=== PATIENT | female | born 1955 | race Caucasian/White ===

== ENCOUNTER 2023-08-11 08:57 | Outpatient (AMB) | payer BC, SELFPAY ==
[2023-08-11 09:14] VITALS: BMI 33.5
--- NOTE | 2023-08-11 09:14 | MHC.OFFVIS ---
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 States pain is by her bicep and radiated to her arm. Hx of lipoma removal 07/2021, states pain started a few months after. Reports it has gradually worsen. In the last 4-6 months she has constant pain, tightness and possible muscle loss. Also states she has pain in her left thumb after her grandson accidentally bent her thumb while playing. Pa in with gripping and pinching motion. Allergies amoxicillin [From Augmentin] Allergy (Severe, Verified 08/11/23 09:21) vomitt clavulanic acid [From Augmentin] Allergy (Severe, Verified 08/11/23 09:21) vomitt methysergide [From Sansert] Allergy (Intermediate, Verified 08/11/23 09:20) hyper tagaderm Allergy (Severe, Uncoded 08/11/23 09:21) hives Medication List - Last Reviewed 08/11/23 by ERNA Negrete hydrochlorothiazide 12.5 mg PO DAILY olmesartan 5 mg PO DAILY propranolol ER 60 mg PO BEDTIME HPI HPI Comments History of Present Illness Details Had a lipoma excision on left triceps [address] Chambers, surgery. Patient recalls that it was about 11 cm. She was told during/after procedure that more muscle was taken out than expected, and had to pull out with some difficulty. She did fine after the surgery but started to have soreness 2 months after. 4-6 weeks ago, patient noted atrophy on left medial forearm. She also complains of pain on left thumb. Denies any numbness. 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 Shows me a letter from surgery that pathology was benign, no signs of malignancy. Denies any associated neck pain. History of essential tremors, affects both sides. Review of Systems Const All systems reviewed & are unremarkable except as noted in HPI and below Physical Exam Vital Signs: BMI result Body Mass Index 33.5 Constitutional: Patient appears to be in no acute distress, well nourished and well developed. Patient was appropriately conversant and oriented. Good historian. MSK: Inspection reveals appropriate head and neck positioning. No pain with palpation over the neck musculature. Cervical ROM was full. No scapular winging. Spurling's sign negative. Bilateral shoulder, elbow and wrist ROM WNL. No ligamentous laxity or crepitance. No increased effusion. No specific abnormalities or instability found on inspection and palpation of the spine and extremities. Strength is 5/5 in all muscle groups tested. No increased tone noted. Strength on bilateral upper extremities were symmetric and equal. There is no wrist drop. There is thinning on left medial forearm flexor tendons/muscle. Enlargement of left CMC joint noted. Mild José test left side. Neurological: Neurologic examination of the upper and lower extremities was nonfocal with intact sensation, muscle stretch reflexes and without focal motor deficits . Tremors affecting both hands, equally. Pena?s negative bilaterally. Babinski was down going bilaterally. Clonus was negative. Gait is non-antalgic without loss of balance. Results Reviewed Results Reviewed: I reviewed records from the following: [facility] Assessment & Plan Assessment & Plan (1) Muscle atrophy: Code(s): M62.50 - Muscle wasting and atrophy, not elsewhere classified, unspecified site Qualifiers: Muscle atrophy area: forearm Laterality: left Qualified Code(s): M62.532 - Muscle wasting and atrophy, not elsewhere classified, left forearm (2) Weakness of left arm: Code(s): R29.898 - Other symptoms and signs involving the musculoskeletal system Plan: I suspect that muscle thinning/atrophy is from the amount of muscle taken out during excision 2 years ago. I do not see any wrist drop that would suggest radial neuropathy or plexopathy, but that would still be in our differential diagnosis. We will schedule for EMG. She can start physical therapy to work on strength and control myofascial release as well. Referral given (3) Arthritis of carpometacarpal (CMC) joint of left thumb: Code(s): M18.12 - Unilateral primary osteoarthritis of first carpometacarpal joint, left hand (4) De Quervain's tenosynovitis, left: Code(s): M65.4 - Radial styloid tenosynovitis [de Quervain] Plan: I think the pain on the base of left thumb is a separate issue, possibly from CMC arthritis or de Quervain tenosynovitis. Will do x-rays today. Can work on that in physical therapy as well. Plan Assessment and plan discussed with patient, and patient was agreeable. All questions were answered thoroughly. Crystal Gibbs MD, JULEE Board Certified, [place] [employer] and [employer] (ABPMR) Board Certified, [place] [employer] Electro[employer] (ABEM) Orders: Orders NE electromyogram (EMG) Today M18.12 - Unilateral primary osteoarthritis of first carpometacarpal joint, left hand, M62.50 - Muscle wasting and atrophy, not elsewhere classified, unspecified site, M65.4 - Radial styloid tenosynovitis [de Quervain], R29.898 - Other symptoms and signs involving the musculoskeletal system NE nerve conduction velocity Today M18.12 - Unilateral primary osteoarthritis of first carpometacarpal joint, left hand, M62.50 - Muscle wasting and atrophy, not elsewhere classified, unspecified site, M65.4 - Radial styloid tenosynovitis [de Quervain], R29.898 - Other symptoms and signs involving the musculoskeletal system XR hand LT min 3V Today M18.12 - Unilateral primary osteoarthritis of first carpometacarpal joint, left hand, M62.50 - Muscle wasting and atrophy, not elsewhere classified, unspecified site, M65.4 - Radial styloid tenosynovitis [de Quervain], R29.898 - Other symptoms and signs involving the musculoskeletal system PT Evaluation and Treatment Today M18.12 - Unilateral primary osteoarthritis of first carpometacarpal joint, left hand, M62.50 - Muscle wasting and atrophy, not elsewhere classified, unspecified site, M65.4 - Radial styloid tenosynovitis [de Quervain], R29.898 - Other symptoms and signs involving the musculoskeletal system Coding Level of Care Code New Pt Level 4 (30485) Diagnoses Atrophy of muscle of left forearm M62.532 Muscle atrophy area: forearm Laterality: left Weakness of left arm R29.898 Arthritis of carpometacarpal (CMC) joint of left thumb M18.12 De Quervain's tenosynovitis, left M65.4
== END 2023-08-11 09:51 | disposition home or self-care (01) ==
PROVIDERS: Visit Provider Physical Medicine & Rehabilitation
DX: M62.532 Muscle wasting and atrophy, not elsewhere classified, left forearm (principal); R29.898 Other symptoms and signs involving the musculoskeletal system; M18.12 Unilateral primary osteoarthritis of first carpometacarpal joint, left hand; M65.4 Radial styloid tenosynovitis [de Quervain]
CPT/HCPCS: 99204

== ENCOUNTER 2023-08-11 08:57 | Outpatient (REF) | payer BC, SELFPAY ==
--- NOTE | ~2023-08-11 | XR_ITS ---
EXAMINATION: XR HAND, LEFT CLINICAL INFORMATION: Muscle wasting and atrophy. Attention base of left thumb, evaluate CMC joint. COMPARISON: None available. TECHNIQUE: Four views of the left hand. FINDINGS: The bones are diffusely demineralized. Severe degenerative changes in the 1st carpometacarpal joint with loss of the joint space, subchondral sclerosis and hypertrophic change with remodeling as well as periarticular/subchondral cysts. Advanced degenerative changes in scattered interphalangeal joints, with hypertrophic change most notable in the 5th DIP joint. Moderate degenerative changes 1st metatarsophalangeal joint. XR/XR hand LT min 3V IMPRESSION: Severe degenerative changes 1st carpometacarpal joint with radial subluxation of the 1st metacarpal. Moderate degenerative changes in scattered IP joints. Bones are diffusely demineralized. Recommend followup imaging in 10-14 days if fracture is suspected.
== END 2023-08-11 08:58 | disposition home or self-care (01) ==
LOC: HO.HOSX 08:57
PROVIDERS: Visit Provider Physical Medicine & Rehabilitation
DX: M18.12 Unilateral primary osteoarthritis of first carpometacarpal joint, left hand (principal); M65.4 Radial styloid tenosynovitis [de Quervain]; M62.532 Muscle wasting and atrophy, not elsewhere classified, left forearm; R29.898 Other symptoms and signs involving the musculoskeletal system
CPT/HCPCS: 73130

== ENCOUNTER 2023-09-23 09:23 | Outpatient (REF) | payer BC, SELFPAY ==
--- NOTE | 2023-09-23 09:32 | EMG_ITS ---
Chief complaint: Had a lipoma excision on left triceps [address] Chambers, surgery. Patient recalls that it was about 11 cm. She was told during/after procedure that more muscle was taken out than expected, and had to pull out with some difficulty. She did fine after the surgery but started to have soreness 2 months after. 6 weeks ago, patient noted atrophy on left medial forearm. She also complains of pain on left thumb. Denies any numbness. 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 She has thinning of left medial forearm. No wrist drop. MMT remains 5/5 bilateral upper extremity. Hand xray showed degenerative changes 1st CMC and IP joints. History of hypertension, hypothyroidism, vitamin-D deficiency, hyperlipidemia, GERD, and endometrial cancer status post hysterectomy and BSO, essential tremor. Reason for referral: Evaluate for brachial plexopathy or radial neuropathy Procedure done: Left upper extremity NCS/EMG Precautions and/or limitations: None The limb temperature was monitored continuously and remained between 32-36 degrees C during the performance of the NCS. Nerve Conduction Studies Anti Sensory Summary Table ?Stim Site NR Onset (ms) Norm Onset (ms) Peak (ms) Norm Peak (ms) O-P Amp (?V) Norm O-P Amp Site1 Site2 Delta-0 (ms) Dist (cm) Andrew (m/s) Norm Andrew (m/s) Left Lat Ante Brach Cutan Anti Sensory (Lat Forearm) Lat Biceps ? 0.9 1.2 3.8 Lat Biceps Lat Forearm 0.9 0.0 Left Med Ante Brach Cutan Anti Sensory (Med Forearm) Elbow ? 0.3 14.1 Elbow Med Forearm 0.0 Left Median Anti Sensory (2nd Digit) Wrist ? 2.6 3.6 <3.6 10.0 >10 Wrist 2nd Digit 2.6 14.0 54 Left Radial Anti Sensory (Thumb) Forearm ? 1.5 2.0 <3.1 30.6 Forearm Thumb 1.5 0.0 Left Ulnar Anti Sensory (5th Digit) Wrist ? 2.5 3.2 <3.7 16.6 >15.0 Wrist 5th Digit 2.5 14.0 56 Motor Summary Table ?Stim Site NR Onset (ms) Norm Onset (ms) O-P Amp (mV) Norm O-P Amp iAmp (mV) Amp (1st) (%) Site1 Site2 Delta-0 (ms) Dist (cm) Andrew (m/s) Norm Andrew (m/s) Left Median Motor (Abd Poll Brev) Wrist ? 3.6 <3.9 7.7 >4.5 8.5 100.0 Elbow Wrist 3.7 21.0 57 >45 Elbow ? 7.3 9.1 10.2 118.2 Left Radial Motor (Arm) Wrist ? 2.0 <2.5 3.0 >1.7 5.1 100.0 2.0 0.0 Elbow ? 4.2 3.0 4.8 100.0 Wrist Elbow 2.2 14.0 64 >60 Mid Arm ? 6.1 2.8 4.0 93.3 Elbow Mid Arm 1.9 15.0 79 Left Ulnar Motor (Abd Dig Minimi) Wrist ? 2.5 <3.0 7.1 >5 8.9 100.0 B Elbow Wrist 2.8 17.0 61 >45 B Elbow ? 5.3 6.7 8.5 94.4 A Elbow B Elbow 1.7 10.0 59 >45 A Elbow ? 7.0 6.6 8.6 93.0 EMG ?Side Muscle Nerve Root Ins Act Fibs Psw Amp Dur Poly Recrt Int Pat Comment Left 1stDorInt Ulnar C8-T1 Nml Nml Nml Nml Nml 0 Nml Complete Left FlexCarRad Median C6-7 Nml Nml Nml Nml Nml 0 Nml Complete Left Biceps Musculocut C5-6 Nml Nml Nml Nml Nml 0 Nml Complete Left Triceps Radial C6-7-8 Nml Nml Nml Nml Nml 0 Nml Complete Left Deltoid Axillary C5-6 Nml Nml Nml Nml Nml 0 Nml Complete Paraspinal EMG ?Side Muscle Nerve Root Ins Act Fibs Psw Comment Left Cervical Upper Rami Nml Nml Nml Left Cervical Mid Rami Nml Nml Nml Left Cervical Lower Rami Nml Nml Nml FINDINGS: All motor and sensory nerves tested showed normal latencies, amplitudes and conduction velocities. Concentric needle EMG was performed in selected muscles of the left upper extremity and cervical paraspinals. Study did not reveal signs of electric abnormalities as shown in the table below. IMPRESSION: 1. This is a normal study. 2. There is no electrodiagnostic evidence for radial neuropathy, median neuropathy, ulnar neuropathy, brachial plexopathy, or cervical radiculopathy. CLINICAL COMMENT: Recommend follow-up with Dr. Chambers, surgery. Thank you for your kind referral. Crystal Gibbs MD, JULEE Board Certified, [place] [employer] and [employer] (ABPMR) Board Certified, [place] [employer] Electrodiagnostic [employer] (ABEM) CC: Kahlil KERN, [facility] [place] [id number] [facility]
== END 2023-09-23 09:24 | disposition home or self-care (01) ==
LOC: HO.NEURO 09:23
PROVIDERS: Visit Provider Physical Medicine & Rehabilitation
DX: M18.12 Unilateral primary osteoarthritis of first carpometacarpal joint, left hand (principal); M62.50 Muscle wasting and atrophy, not elsewhere classified, unspecified site; R29.898 Other symptoms and signs involving the musculoskeletal system; M65.4 Radial styloid tenosynovitis [de Quervain]
CPT/HCPCS: 95886; 95910

== ENCOUNTER → 2023-09-23 09:32 | Outpatient (BNV) | payer BC, SELFPAY | PROVIDERS: Visit Provider Physical Medicine & Rehabilitation | DX: M62.532 Muscle wasting and atrophy, not elsewhere classified, left forearm (principal) | CPT/HCPCS: 95886; 95910 ==